=== PATIENT | male | born 1960 | race Caucasian/White ===

== ENCOUNTER 2019-02-13 12:59 | Inpatient (IN) | payer MEDICAID ==
[2019-02-13] VITALS (8 sets, daily range): BP systolic 93–107; BP diastolic 49–70
[~2019-02-13] VITALS: Ht 172.7 cm; Wt 70.3 kg
[2019-02-13] MEDS ORDERED: ACETAMINOPHEN 325MG TABLET PO STA (13:22)
[2019-02-13] MEDS ORDERED: PIPERACILLIN/TAZ 3.375G PREMIX 50 ML IV ONE (13:30)
[2019-02-13] MEDS ORDERED: SODIUM CHLORIDE 0.9% 1000ML BAG (SEPSIS BOLUS) IV ONE (13:30)
[2019-02-13] MEDS ORDERED: VANCOMYCIN 1 G PREMIX 200 ML IV ONE (13:30)
[2019-02-13] MEDS ORDERED: LIDOCAINE HCL 1% 20ML VIAL (Pyxis) INJ ONE (13:55)
[2019-02-13] MEDS ORDERED: SODIUM BICARBONATE 4% (2.4MEQ) 5ML VIAL IV ONE (13:55)
[2019-02-13 14:19] LABS: BASOPHILS % 0.6 % (0.0-2.0); EOSINOPHILS % 5.6 % (0.0-5.0); HEMATOCRIT. 47.3 % (42.0-52.0); HEMOGLOBIN. 15.8 g/dL (14.0-18.0); LYMPHOCYTES % 13.2 % (20.0-50.0); MEAN CORPUSCULAR HEMOGLOBIN 28.6 pg (28.0-32.0); MEAN CORPUSCULAR VOLUME 85.3 fL (80.0-94.0); MONOCYTES % 6.9 % (2.0-8.0); NEUTROPHILS % 73.7 % (40.0-76.0); RED BLOOD CELL COUNT 5.55 mill/uL (4.7-6.1); RED CELL DISTRIBUTION WIDTH 17.6 % (11.6-14.6)
[2019-02-13 14:27] LABS: CHLORIDE 86 mEq/L (98-107)
[2019-02-13 14:40] LABS: PLATELET 412 x1000/uL (130-400)
[2019-02-13] MEDS ORDERED: DEXTROSE 50% WATER 50ML SYRINGE IV ONE ×2 (14:45→15:00)
[2019-02-13 14:58] LABS: INR 1.2; PROTHROMBIN TIME 12.2 sec (9.6-11.0)
[2019-02-13] MEDS ORDERED: MIDAZOLAM HCL 50 MG in DEXTROSE 5% WATER 40 ML IV ONE ×4 (16:30)
[2019-02-13] MEDS ORDERED: IPRATROPIUM/ALBUTEROL 0.5-3(2.5)MG/3ML NEB HHN PRN (16:30)
[2019-02-13] MEDS ORDERED: DEXTROSE 50% WATER 50ML SYRINGE IV PRN ×3 (16:30→22:15)
[2019-02-13] MEDS ORDERED: DEXTROSE 10% WATER 500 ML IV ONE (16:30)
[2019-02-13] MEDS ORDERED: MIDAZOLAM HCL 2 MG/2 ML VIAL IV ONE (16:30)
[2019-02-13] MEDS ORDERED: PROPOFOL 10MG/ML 100ML 100 ML IV PRN (16:30)
[2019-02-13] MEDS ORDERED: NOREPINEPHRINE 16 MG in DEXT 5% WATER 234 ML IV PRN ×2 (16:30→17:00)
[2019-02-13] MEDS ORDERED: PIPERACILLIN/TAZ 3.375G PREMIX 50 ML IV SCH (16:30)
[2019-02-13] MEDS ORDERED: ETOMIDATE 2MG/ML 10ML VIAL IV ONE (16:37)
[2019-02-13] MEDS ORDERED: SUCCINYLCHOLINE CHLORIDE 200MG/10ML IV ONE (16:37)
[2019-02-13] MEDS ORDERED: NOREPINEPHRINE 4 MG in DEXT 5% WATER 246 ML IV ONE (17:00)
[2019-02-13] MEDS ORDERED: NOREPINEPHRINE 4MG/250ML PMX 250 ML IV ONE (17:22)
[2019-02-13] MEDS ORDERED: NOREPINEPHRINE 4MG/250ML PMX 250 ML IV NR (17:30)
[2019-02-13 17:32] LABS: BG BASE EXCESS -2.9 mmol/L (-2.0-2.0); BG CARBOXYHEMOGLOBIN 0.6 % (0.5-1.5); BG DEOXYHEMOGLOBIN 2.8 % (0.0-5.0); BG FRACTION INSPIRED OXYGEN 50; BG HCO3 ACT 22.8 mmol/L (22.0-26.0); BG METHEMOGLOBIN 0.3 % (0.0-1.5); BG OXYGEN SATURATION 97.2 % (92.0-98.5); BG OXYHEMOGLOBIN 96.3 % (94.0-97.0); BG PH 7.342 (7.350-7.450); BG PO2 100.8 mmHg (75.0-100.0); BG SAMPLE SITE RIGHT RADIAL; BG TIDAL VOLUME(mL) 500 mL; BG TOTAL HEMOGLOBIN 12.9 g/dL (12.0-18.0); BG VENT MODE VENT - A/C; BG VENT RATE 14 set
[2019-02-13 17:41] LABS: CLARITY URINE CLEAR (CLEAR); COLOR URINE YELLOW (YELLOW); KETONES URINE NEGATIVE (NEGATIVE); LEUKOCYTE ESTERASE URINE NEGATIVE (NEGATIVE); NITRITE URINE NEGATIVE (NEGATIVE); OCCULT BLOOD URINE NEGATIVE (NEGATIVE); PROTEIN URINE NEGATIVE (NEGATIVE); SPECIFIC GRAVITY URINE 1.009 (1.005-1.030)
[2019-02-13] MEDS ORDERED: NOREPINEPHRINE 16 MG in SODIUM CHLORIDE 0.9% 234 ML IV PRN ×2 (19:16→21:15)
[2019-02-13] MEDS ORDERED: [UNRECOGNIZED DRUG - OTHER] IV SCH ×2 (19:30)
[2019-02-13] MEDS ORDERED: SODIUM CHLORIDE IV SCH ×2 (19:30)
[2019-02-13] MEDS ORDERED: DEXTROSE 10% IV SCH ×2 (19:30)
[2019-02-13 20:21] LABS: HEPATITIS B SURFACE ANTIGEN NEGATIVE
[2019-02-13 20:51] LABS: HEPATITIS A AB IGM NEGATIVE (NEGATIVE)
[2019-02-13 21:44] LABS: FOLIC ACID (FOLATE) SERUM > 20.00 ng/mL (>5.38); VITAMIN B12 SERUM 671 pg/mL (211-911)
[2019-02-13] MEDS ORDERED: FURO20TA4 MT (22:04)
[2019-02-13] MEDS ORDERED: BACL-141 MT (22:04)
[2019-02-13] MEDS ORDERED: MULT-647 PO (22:04)
[2019-02-13] MEDS ORDERED: DIGO125T82 MT (22:04)
[2019-02-13] MEDS ORDERED: AMIO100T4 PO (22:04)
[2019-02-13] MEDS ORDERED: GABA-531 MT (22:04)
[2019-02-13] MEDS ORDERED: APIX5TAB MT (22:04)
[2019-02-13] MEDS ORDERED: ASCO-339 MT (22:04)
[2019-02-13] MEDS ORDERED: POLY17PO3 MT (22:04)
[2019-02-13] MEDS ORDERED: BUPR1FIL SL (22:04)
[2019-02-13] MEDS ORDERED: DULO60CA44 MT (22:04)
[2019-02-13] MEDS ORDERED: METO25TA3 PO (22:04)
[2019-02-13] MEDS ORDERED: DOCU-150 MT (22:04)
[2019-02-13] MEDS ORDERED: CITA10TA9 MT (22:04)
[2019-02-13] MEDS ORDERED: PANT40TA4 MT (22:04)
[2019-02-13] MEDS ORDERED: SPIR25TA6 MT (22:04)
[2019-02-13] MEDS: ACETAMINOPHEN 650MG/20.3ML UDC PO PRN (22:56)
[2019-02-13] MEDS: PIPERACILLIN/TAZ 3.375G PREMIX 50 ML IV SCH (22:57)
[2019-02-13] MEDS ORDERED: PAMIDRONATE DISODIUM 30 MG in SODIUM CHLORIDE 0.9% 500 ML IV SCH (23:00)
[2019-02-13] MEDS ORDERED: SODIUM CHLORIDE 23.4% 154 MEQ in DEXT 10% WATER 1,000 ML IV SCH (23:00)
[2019-02-14] VITALS (85 sets, daily range): BP systolic 51–152; BP diastolic 17–94
[2019-02-14] MEDS: VANCOMYCIN 1 G PREMIX 200 ML IV SCH ×2 (00:13→09:10)
[2019-02-14] MEDS: BLOOD SUGAR DIAGNOSTIC STRIP TEST SCH ×11 (01:00→12:00)
[2019-02-14] MEDS: ACETYLCYSTEINE 100MG/ML 10% VIAL 4ML INH SCH ×3 (03:40→16:08)
[2019-02-14] MEDS: IPRATROPIUM/ALBUTEROL 0.5-3(2.5)MG/3ML NEB HHN SCH ×4 (03:40→16:08)
[2019-02-14] MEDS: PIPERACILLIN/TAZ 3.375G PREMIX 50 ML IV SCH ×3 (05:42→18:38)
[2019-02-14] MEDS: ACETAMINOPHEN 650MG/20.3ML UDC PO PRN (05:42)
[2019-02-14 05:49] LABS: CHLORIDE 96 mEq/L (98-107)
[2019-02-14 07:52] LABS: BG BASE EXCESS 2.2 mmol/L (-2.0-2.0); BG CARBOXYHEMOGLOBIN 0.7 % (0.5-1.5); BG FRACTION INSPIRED OXYGEN 50; BG HCO3 ACT 27.3 mmol/L (22.0-26.0); BG METHEMOGLOBIN 0.2 % (0.0-1.5); BG OXYHEMOGLOBIN 96.1 % (94.0-97.0); BG PCO2 44.3 mmHg (35.0-45.0); BG PH 7.408 (7.350-7.450); BG PO2 94.7 mmHg (75.0-100.0); BG SAMPLE SITE RIGHT RADIAL; BG TIDAL VOLUME(mL) 500 mL; BG TOTAL HEMOGLOBIN 13.1 g/dL (12.0-18.0); BG VENT MODE VENT - A/C; BG VENT RATE 14 set
[2019-02-14] MEDS ORDERED: LEVETIRACETAM 500 MG in SODIUM CHLORIDE 0.9% 100 ML IV SCH (09:00)
[2019-02-14 10:42] LABS: BASOPHILS % 0.9 % (0.0-2.0); EOSINOPHILS % 6.1 % (0.0-5.0); HEMATOCRIT. 36.1 % (42.0-52.0); HEMOGLOBIN. 11.9 g/dL (14.0-18.0); LYMPHOCYTES % 13.6 % (20.0-50.0); MEAN CORPUSCULAR HEMOGLOBIN 28.3 pg (28.0-32.0); MEAN CORPUSCULAR VOLUME 85.7 fL (80.0-94.0); MEAN PLATELET VOLUME 7.1 fl (7.4-10.4); MONOCYTES % 8.4 % (2.0-8.0); PLATELET 332 x1000/uL (130-400); RED BLOOD CELL COUNT 4.21 mill/uL (4.7-6.1); RED CELL DISTRIBUTION WIDTH 17.2 % (11.6-14.6)
[2019-02-14] MEDS ORDERED: LIDOCAINE HCL 2% 5ML SYRINGE IV ONE (14:40)
[2019-02-14] MEDS ORDERED: SODIUM BICARBONATE 7.5% 0.9 MEQ/ML 50ML SYR IV ONE (14:40)
[2019-02-14] MEDS ORDERED: EPINEPHRINE 0.1MG/ML (1:10,000) 10ML SYR ONE ×2 (14:40→14:56)
[2019-02-14] MEDS ORDERED: AMIODARONE HCL 50MG/ML 3ML VIAL IV ONE (14:40)
[2019-02-14] MEDS ORDERED: VASOPRESSIN 10 UNIT in SODIUM CHLORIDE 0.9% 99.5 ML IV PRN (15:15)
[2019-02-14] MEDS ORDERED: PHENYLEPHRINE 40 MG in DEXT 5% WATER 246 ML IV PRN (15:15)
[2019-02-14 15:35] LABS: BG BASE EXCESS -7.9 mmol/L (-2.0-2.0); BG CARBOXYHEMOGLOBIN 0.5 % (0.5-1.5); BG DEOXYHEMOGLOBIN 0.7 % (0.0-5.0); BG FRACTION INSPIRED OXYGEN 100; BG HCO3 ACT 18.2 mmol/L (22.0-26.0); BG METHEMOGLOBIN 0.2 % (0.0-1.5); BG OXYGEN SATURATION 99.3 % (92.0-98.5); BG OXYHEMOGLOBIN 98.6 % (94.0-97.0); BG PCO2 39.6 mmHg (35.0-45.0); BG PH 7.281 (7.350-7.450); BG PO2 218.9 mmHg (75.0-100.0); BG SAMPLE SITE LEFT RADIAL; BG TIDAL VOLUME(mL) 500 mL; BG TOTAL HEMOGLOBIN 11.5 g/dL (12.0-18.0); BG VENT MODE VENT - A/C; BG VENT RATE 14 set
[2019-02-14] MEDS ORDERED: SODIUM BICARBONATE 8.4% 1 MEQ/ML 50ML SYR IV NR (16:00)
[2019-02-14] MEDS: VASOPRESSIN 10 UNIT in SODIUM CHLORIDE 0.9% 99.5 ML IV PRN ×2 (16:23→18:37)
[2019-02-14] MEDS ORDERED: PROPOFOL 10MG/ML 100ML 100 ML IV PRN (17:00)
[2019-02-14 17:53] LABS: BG BASE EXCESS -1.8 mmol/L (-2.0-2.0); BG CARBOXYHEMOGLOBIN 0.6 % (0.5-1.5); BG DEOXYHEMOGLOBIN 1.1 % (0.0-5.0); BG FRACTION INSPIRED OXYGEN 85; BG OXYGEN SATURATION 98.9 % (92.0-98.5); BG OXYHEMOGLOBIN 98.3 % (94.0-97.0); BG PCO2 34.2 mmHg (35.0-45.0); BG PH 7.426 (7.350-7.450); BG PO2 140.1 mmHg (75.0-100.0); BG SAMPLE SITE RIGHT FEMORAL; BG TIDAL VOLUME(mL) 500 mL; BG TOTAL HEMOGLOBIN 12.7 g/dL (12.0-18.0); BG VENT MODE VENT - A/C; BG VENT RATE 18 set
[2019-02-14] MEDS ORDERED: PHENYLEPHRINE 40 MG in DEXT 5% WATER 500 ML IV PRN (18:00)
[2019-02-14] MEDS ORDERED: NOREPINEPHRINE 32 MG in DEXT 5% WATER 468 ML IV PRN (18:10)
[2019-02-14] MEDS ORDERED: NOREPINEPHRINE IV PRN (18:15)
[2019-02-14] MEDS ORDERED: DEXT 5% IV PRN ×2 (18:15)
[2019-02-14] MEDS ORDERED: PHENYLEPHRINE IV PRN (18:15)
[2019-02-14] MEDS ORDERED: WATER IV PRN ×2 (18:15)
[2019-02-14] MEDS ORDERED: PHENYLEPHRINE 80 MG in DEXT 5% WATER 492 ML IV PRN (18:30)
[2019-02-14] MEDS ORDERED: LORAZEPAM 2MG/ML CPJ IV PRN (19:30)
[2019-02-14] MEDS ORDERED: DOPAMINE 800MG PREMIX (DOUBLE) 250 ML IV PRN (19:30)
[2019-02-14] MEDS ORDERED: BLOOD SUGAR DIAGNOSTIC STRIP TEST SCH ×2 (20:00)
== END 2019-02-14 22:30 | disposition expired | DRG 720 ==
LOC: ER 12:59 → MICUSO 15:30 → EDBEDREQ 15:47 → EDBEDREQSVC 16:20 → ENRESERV 20:19
PROVIDERS: ADMIT Internal Medicine; ATTEND Internal Medicine
PROC: 0BH17EZ Insertion of Endotracheal Airway into Trachea, Via Natural or Artificial Opening (ICD-10-PCS; principal; 2019-02-13)
PROC: 5A1945Z Respiratory Ventilation, 24-96 Consecutive Hours (ICD-10-PCS; 2019-02-13)
PROC: 05HM33Z Insertion of Infusion Device into Right Internal Jugular Vein, Percutaneous Approach (ICD-10-PCS; 2019-02-13)
PROC: B543ZZA Ultrasonography of Right Jugular Veins, Guidance (ICD-10-PCS; 2019-02-13)
PROC: 0W9B3ZZ Drainage of Left Pleural Cavity, Percutaneous Approach (ICD-10-PCS; 2019-02-14)
DX: A41.9 Sepsis, unspecified organism (principal); G93.6 Cerebral edema; J96.01 Acute respiratory failure with hypoxia; R65.21 Severe sepsis with septic shock; E43 Unspecified severe protein-calorie malnutrition; G92 Toxic encephalopathy; J18.1 Lobar pneumonia, unspecified organism; Z66 Do not resuscitate; I11.0 Hypertensive heart disease with heart failure; D72.1 Eosinophilia; E83.52 Hypercalcemia; E87.2 Acidosis; I50.22 Chronic systolic (congestive) heart failure; E87.1 Hypo-osmolality and hyponatremia; B19.20 Unspecified viral hepatitis C without hepatic coma; D64.9 Anemia, unspecified; J91.8 Pleural effusion in other conditions classified elsewhere; E16.2 Hypoglycemia, unspecified; I44.0 Atrioventricular block, first degree; I73.9 Peripheral vascular disease, unspecified; I48.0 Paroxysmal atrial fibrillation; J44.9 Chronic obstructive pulmonary disease, unspecified; I46.9 Cardiac arrest, cause unspecified; K74.60 Unspecified cirrhosis of liver; K80.20 Calculus of gallbladder without cholecystitis without obstruction; R62.7 Adult failure to thrive; R47.01 Aphasia; F19.10 Other psychoactive substance abuse, uncomplicated; F32.9 Major depressive disorder, single episode, unspecified; F41.9 Anxiety disorder, unspecified; M17.12 Unilateral primary osteoarthritis, left knee; Z79.01 Long term (current) use of anticoagulants; Z79.899 Other long term (current) drug therapy; Z86.718 Personal history of other venous thrombosis and embolism; Z68.23 Body mass index [BMI] 23.0-23.9, adult
CPT/HCPCS: 31500; 32555; 36415; 36569; 36600; 71045; 76700; 76937; 80061; 82040; 82140; 82330; 82375; 82533; 82570; 82607; 82746; 82805; 82962; 83036; 83605; 83735; 83880; 83935; 83970; 84100; 84145; 84300; 84443; 84478; 84484; 86705; 86709; 86803; 87340; 93005; 93970; 94002; 94640; 96365; 96366; 96368; 99291; C1725; J0282; J0330; J1953; J2060; J2250; J2370; J2430; J2543; J2704; J3370; J3490; J7030; J7040; J7050; J7060; J7131; J7608; J7620; A4315